=== PATIENT | female | born 1995 | race Caucasian/White ===

== ENCOUNTER 2022-07-29 19:59 | Inpatient (IN) ==
[2022-07-29] MEDS ORDERED: IOPAMIDOL 100 ML BOTTLE IV ONE (20:00)
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
[2022-07-29] MEDS ORDERED: KETOROLAC 30 MG/ML VIAL IV ONE (21:17)
[2022-07-29] MEDS ORDERED: LACTATED RINGERS 1,000 ML IV ONE (21:17)
[2022-07-29] MEDS ORDERED: DEXAMETHASONE 10 MG/ML VIAL IV ONE (21:29)
[2022-07-29 21:53] LABS: POC Calcium, Ionized 1.14 (1.16-1.32); POC Creatinine 0.6 (0.6-1.2); POC Potassium 3.5 (3.3-5.1)
[2022-07-29] MEDS ORDERED: AMOXICILLIN 250 MG CAPSULE PO ONE (22:08)
[2022-07-29 22:19] LABS: Basophils # (Auto) 0.06 K/mcL (0.00-0.30); Basophils % (Auto) 0.3 % (0.0-2.0); Eosinophils # (Auto) 0.01 K/mcL (0.00-0.70); Eosinophils % (Auto) 0 % (0.0-7.0); Hematocrit 41.5 % (34.1-44.9); Hemoglobin 14.5 g/dL (11.2-15.7); Lymphocytes # (Auto) 2.57 K/mcL (1.50-4.80); Lymphocytes % (Auto) 12.2 % (15.5-49.0); Mean Cell Volume 82.2 fL (80.0-100.0); Mean Corpuscular HGB Conc 34.9 g/dL (31.0-36.0); Mean Platelet Volume 9.4 fL (8.8-12.5); Monocytes # (Auto) 1.46 K/mcL (0.10-0.90); Monocytes % (Auto) 6.9 % (1.0-12.0); Neutrophils % (Auto) 79.7 % (38.0-78.0); Platelet Count 315 K/mcL (140-440); RBC 5.05 M/mcL (3.59-5.38); Red Cell Distribution Width 12.3 % (11.5-14.5); WBC 21.1 K/mcL (4.5-11.0)
[2022-07-29] MEDS ORDERED: 0.9 % SODIUM CHLORIDE 1,000 ML IV ONE (22:32)
[2022-07-29] MEDS ORDERED: ONDANSETRON 4 MG/2 ML VIAL IV PRN (23:24)
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
[2022-07-30] MEDS: AMPICILLIN SODIUM/SULBACTAM NA 3 GM in 0.9 % SODIUM CHLORIDE 100 ML IV SCH ×5 (03:07→23:35)
[2022-07-30] MEDS: 0.9 % SODIUM CHLORIDE 1,000 ML IV SCH ×2 (03:07→17:37)
[2022-07-30] MEDS: 0.9 % SODIUM CHLORIDE 10 ML SYRINGE IV SCH ×3 (05:06→20:00)
[2022-07-30] MEDS: IBUPROFEN 600 MG TABLET PO PRN (05:27)
[2022-07-30] MEDS ORDERED: IBUPROFEN 600 MG TABLET PO ONE (05:28)
--- NOTE | 2022-07-30 05:48 | Cat Scan Report ---
INDICATION: Strep, elevated WBC COMPARISON: None TECHNIQUE: Axial contrast enhanced images through the neck. Sagittally and coronally reformatted images. 80ml Isovue 370 injected intravenously. FINDINGS: Examination was initially interpreted by [facility] Mucosa: There is mucosal and submucosal tonsillar soft tissue swelling at the level of the oropharynx.. There is mild mucosal enhancement. There may be a small peritonsillar microabscess on the left. The oropharynx is edematous with mucosal and submucosal edema and effacement of the airway. A well-defined retropharyngeal abscess is not present. There is no foreign body. Epiglottis and glottis: Epiglottis is normal. No evidence for epiglottitis. Glottis is normal. No subglottic edema. Vascular:Common carotid arteries and internal carotid arteries are patent bilaterally. Internal jugular veins are patent Lymphatic:No pathologic lymphadenopathy. Internal jugular chains are negative. No supraclavicular adenopathy Salivary glands:Parotid glands and submandibular glands are negative bilaterally. No focal mass. No evidence for sialoadenitis. Soft Tissue:No solid or cystic soft tissue mass. No abscess. No focal abnormality Lung Apices:No pulmonary parenchymal density. No pneumothorax. No focal abnormality. Thyroid:Negative. No detectable nodule Paranasal sinuses:Mild mucosal thickening in the left maxillary sinus Musculoskeletal:Negative cervical spine. No fracture. No lytic lesion. IMPRESSION: 1. Tonsillar and peritonsillar mucosal and submucosal edema and enhancement. 2. Subtle low-density abnormalities in the represent microabscesses. A dominant retropharyngeal abscess is not identified. 3. Effacement of the airway at the level of the oropharynx The exam was performed using radiation dose optimization techniques including, but not limited to, automated exposure control, adjustment of the mA and/or kV according to patient size and use of iterative reconstruction technique. Interpreted and Authenticated by: Jarvis Espinoza 07/30/22
[2022-07-30 06:16] LABS: Basophils # (Auto) 0.06 K/mcL (0.00-0.30); Basophils % (Auto) 0.2 % (0.0-2.0); Eosinophils # (Auto) 0 K/mcL (0.00-0.70); Eosinophils % (Auto) 0 % (0.0-7.0); Hematocrit 39.3 % (34.1-44.9); Hemoglobin 13.1 g/dL (11.2-15.7); Lymphocytes # (Auto) 2.13 K/mcL (1.50-4.80); Lymphocytes % (Auto) 8.6 % (15.5-49.0); Mean Cell Volume 85.8 fL (80.0-100.0); Mean Corpuscular HGB Conc 33.3 g/dL (31.0-36.0); Mean Platelet Volume 9.4 fL (8.8-12.5); Monocytes % (Auto) 2.8 % (1.0-12.0); Neutrophils % (Auto) 86.2 % (38.0-78.0); Platelet Count 295 K/mcL (140-440); RBC 4.58 M/mcL (3.59-5.38); Red Cell Distribution Width 12.5 % (11.5-14.5); WBC 24.8 K/mcL (4.5-11.0)
--- NOTE | 2022-07-30 06:23 | XRay Report ---
INDICATION: SOB TECHNIQUE: AP portable semiupright chest x-ray COMPARISON: None FINDINGS: Lungs:Lungs are negative. No focal pulmonary parenchymal infiltrate or mass Heart, vascular:No significant cardiomegaly. Pulmonary vascularity is normal. No pulmonary edema or pulmonary congestion Mediastinum, santo:No mediastinal widening. No hilar mass Pleura:No pleural fluid. No pleural-based mass or calcification Skeletal:Negative. IMPRESSION: Negative AP chest x-ray Interpreted and Authenticated by: Jarvis Espinoza 07/30/22
[2022-07-30 06:37] LABS: Blood Urea Nitrogen 10 mg/dL (6-20); Calcium 8.8 mg/dL (8.6-10.4); Carbon Dioxide 19 mmol/L (22-30); Chloride 103 mmol/L (96-108); Glomerular Filtration Rate 125; Glucose 144 mg/dL (70-105)
--- NOTE | 2022-07-30 07:36 | Internal Med Progress Note ---
SUBJECTIVE Subjective Patient information: Note initiated : 07/30/22 at 7:27 am Service Date, if different from initiated Date: [] Patient: Dawn Gonzalez 26 y/o F admitted on 07/30/22 for Swollen throat, body ache. Chief Complaint: [] Additional PMFSH (Level 3 Only): Ms. Gonzalez is a 26 year old female with no significant past medical history prese nted with 2 days history of sore throat, nausea, chills. 1 day ago patient started feeling unwell with sore throat. Today when she woke up she had severe pain in her throat more on the right side. She could not eat or drink, she was not able to talk due to throat pain, also her neck hurts. She has been coughing up brownish sputum. She reports her back and hip hurts. No documented fever. She endorse some shortness of breath due to sore throat. Patient is a [employer], she has multiple sick contacts at the facility, also all her kids are sick with nausea, fever and cough. Patient had remote history of tonsillectomy. Work-up in ER revealed WBC of 21,000 with neutrophilia, BMP unremarkable, p rocalcitonin 0.10, lactate normal. Strep throat was positive. Influenza and COVID screen was negative. Patient was in sepsis with tachycardia, leukocytosis. Chest x-ray showed no acute findings. 07/30 patient seen and examined, chart reviewed. Patient tachycardia responded to IV fluids. Leukocytosis went up to 24,000 from 21,000 likely in the setting of infection, patient also received steroid on admission which is contributing. Patient reports she is now able to eat and drink, less sore throat. Reports no fever but some chills overnight, hoarseness of voice resolving. ROS Constitutional: Reports some chills overnight, no fever Eyes: Denies eye pain or vision change ENT: Denies sore throat, less cough Cardiovascular: Denies chest pain, dyspnea on exertion, orthopnea or edema Respiratory: Cough, sputum production, some shortness of breath due to sore th roat Gastrointestinal: Endorses nausea denies abdominal pain, vomiting, diarrhea, constipation, hematochezia or melena Musculoskeletal: Reports arthralgia, back and hip hurts Integumentary: Denies rash or lesions Neurological: Denies headache, weakness, numbness, confusion, abnormal gait or dizziness Psychiatric: Denies anxiety, suicidal thoughts or homicidal thoughts Endocrine: Denies fatigue or polyuria Hematological/Lymphatic: Denies easy bleeding or easy bruising Exam General appearance: Present alert and in no apparent distress; Absent anxious, nontoxic Head Head: Present normocephalic; Absent atraumatic Eye Eye: Present PERRL, EOMI and visual marte intact; Absent scleral icterus or nystagmus ENT ENT: Erythema involving right tonsillar and peritonsillar area, posterior pharynx, no exudate, uvula midline, tenderness at the angle of jaw resolving Neck Neck: Present full ROM; Absent tenderness Chest Chest: Present normal inspection, symmetric chest wall rise and tenderness Respiratory Respiratory: Present normal lung sounds bilaterally; Absent respiratory distress or accessory muscle use Cardiovascular Cardiovascular: Present S1 and S2, regular rate and rhythm, no murmurs heard Adbominal Abdominal: Present soft and normal bowel sounds; Absent distention or tenderness Extremities Extremities: Present normal inspection and full ROM; Absent tenderness Back Back: Present normal inspection and full ROM; Absent tenderness Neurological Neurological: Present alert, oriented X3, CN II-XII intact, normal gait and reflexes normal; Absent motor sensory deficit Psychiatric Psychiatric: Present normal affect and normal mood Skin Skin: Present warm (WNL), dry and normal color CT scan neck IMPRESSION: 1. Tonsillar and peritonsillar mucosal and submucosal edema and enhancement. 2. Subtle low-density abnormalities in the represent microabscesses. A dominant retropharyngeal abscess is not identified. 3. Effacement of the airway at the level of the oropharynx Assessment Acute streptococcal pharyngitis, rapid strep positive. Sepsis with tachycardia, leukocytosis and strep throat. Leukocytosis, likely in the setting of sepsis and steroid therapy Current smoker/tobacco abuse. Plan CT soft tisse neck showed no kamlesh retroperitoneal abscess, possible microabscess. Patient oropharyngeal airway. Patient is satting well on room air, no respiratory compromise. Continue IV Unasyn. No need for Decadron therapy. Blood cultures are pending. Patient oral intake is improving, will DC IV fluids later today Counseled on smoking cessation DVT prophylaxis with Lovenox Full code Constitutional Vitals: Vital Signs Temp Pulse Resp BP Pulse Ox O2 Del Method 97.7 F 95 H 21 118/75 95 Room Air 07/30/22 04:00 07/30/22 04:00 07/30/22 04:00 07/30/22 04:00 07/30/22 04:00 07/30/22 04:00 Period Temp Pulse Resp BP Sys/Casas Pulse Ox O2 Del Method O2 Flow Rate Last 24 Hr 97.7 F-99.3 F 93-129 18-21 118-152/72-84 95-98 Room Air-Room Air Intake and Output 07/29/22 07/30/22 07/30/22 19:59 03:59 11:59 Intake Total 1500 200 Balance 1500 200 Weight 78.131 kg Intake & Output: Intake & Output 07/29/22 07/30/22 07/30/22 19:59 03:59 11:59 Intake Total 1500 200 Balance 1500 200 Weight 78.131 kg Intake: IV 1000 200 Unasyn 3 gm In Sodium Chloride 200 0.9% 100 ml @ 200 mls/hr IV Q6H SELWYN Rx#:[id number] Lactated Ringers 1,000 ml @ 1000 Wide Open IV BOLUS ONE Rx#: [id number] Oral 500 OBJ DATA Labs 07/30/22 05:29 07/30/22 05:29 Labs: Abnormal Lab Results 07/30/22 07/30/22 07/29/22 05:29 05:29 23:02 WBC 24.8 H Immature Gran % (Auto) 2.2 H Neut % (Auto) 86.2 H Lymph % (Auto) 8.6 L Wilkes # (Auto) Immature Gran # 0.54 H Absolute Neutrophils 21.36 H POC VBG pH 7.48 H POC VBG pCO2 at Temp 27.1 L POC VBG pO2 66 H POC VBG HCO3 20.3 L POC VBG Total CO2 21.0 L POC Venous O2 Sat 94.0 H POC VBG Base Excess -3.0 L Carbon Dioxide 19 L Glucose 144 H POC Glucose POC WB Ioniz Calcium Procalcitonin 07/29/22 07/29/22 07/29/22 22:37 21:45 21:38 WBC 21.1 H Immature Gran % (Auto) 0.9 H Neut % (Auto) 79.7 H Lymph % (Auto) 12.2 L Wilkes # (Auto) 1.46 H Immature Gran # 0.20 H Absolute Neutrophils 16.82 H POC VBG pH POC VBG pCO2 at Temp POC VBG pO2 POC VBG HCO3 POC VBG Total CO2 POC Venous O2 Sat POC VBG Base Excess Carbon Dioxide Glucose POC Glucose 106 H POC WB Ioniz Calcium 1.14 L Procalcitonin 0.10 H Meds: Medications Acetaminophen (Acetaminophen 325 Mg Tablet) 650 mg PO Q6HP PRN; Protocol PRN Reason: Per Pain Protocol/Fever > 101 Enoxaparin Sodium (Enoxaparin 40 Mg/0.4 Ml Syringe) 40 mg SQ DAILY [facility] Ampicillin Sodium/Sulbactam (Sodium 3 gm/ Sodium Chloride) 100 mls @ 200 mls/hr IV Q6H [facility] Last Infusion: 07/30/22 05:45 Dose: Infused Sodium Chloride (Sodium Chloride 0.9%) 1,000 mls @ 75 mls/hr IV .[id number] [facility] Last Admin: 07/30/22 03:07 Dose: 75 mls/hr Ibuprofen (Ibuprofen 600 Mg Tablet) 600 mg PO QIDP PRN; Protocol PRN Reason: Per Pain Protocol/Fever > 101 Last Admin: 07/30/22 05:27 Dose: 600 mg Ondansetron HCl (Ondansetron 4 Mg/2 Ml Vial) 4 mg IV Q6HP PRN PRN Reason: Nausea And Vomiting Sodium Chloride (0.9 % Sodium Chloride 10 Ml Syringe) 10 ml IV Q8 [facility] Last Admin: 07/30/22 05:06 Dose: Not Given A/P Time Spent With Patient Time: Total time spent is greater than 50% in coordination of care (as documented) at patient's floor/unit and/or counseling patient: Initial: Total time with patient: 55 - 74 minutes QUALITY VTE Deep Vein Thrombosis/Pulmonary Embolism Present on Admission: No
[2022-07-30] MEDS: ENOXAPARIN 40 MG/0.4 ML SYRINGE SQ SCH (09:18)
[2022-07-30] MEDS ORDERED: POLYETHYLENE GLYCOL 3350 17 GM PACKET PO ONE (10:15)
[2022-07-30] MEDS ORDERED: SENNOSIDES 1 TABLET PO ONE (10:15)
[2022-07-30] MEDS ORDERED: CALCIUM CARBONATE 500 MG TAB.CHEW CHEWED PRN (16:07)
[2022-07-30] MEDS: ACETAMINOPHEN 325 MG TABLET PO PRN (16:08)
[2022-07-31] MEDS: IBUPROFEN 600 MG TABLET PO PRN (04:44)
[2022-07-31] MEDS: AMPICILLIN SODIUM/SULBACTAM NA 3 GM in 0.9 % SODIUM CHLORIDE 100 ML IV SCH (04:45)
[2022-07-31] MEDS: 0.9 % SODIUM CHLORIDE 10 ML SYRINGE IV SCH (05:10)
[2022-07-31 06:17] LABS: Basophils # (Auto) 0.11 K/mcL (0.00-0.30); Basophils % (Auto) 0.7 % (0.0-2.0); Eosinophils # (Auto) 0.08 K/mcL (0.00-0.70); Eosinophils % (Auto) 0.5 % (0.0-7.0); Lymphocytes # (Auto) 3.72 K/mcL (1.50-4.80); Lymphocytes % (Auto) 23.3 % (15.5-49.0); Mean Cell Volume 86.1 fL (80.0-100.0); Mean Corpuscular HGB Conc 33.3 g/dL (31.0-36.0); Mean Platelet Volume 9.6 fL (8.8-12.5); Monocytes # (Auto) 0.94 K/mcL (0.10-0.90); Monocytes % (Auto) 5.9 % (1.0-12.0); Neutrophils % (Auto) 67.8 % (38.0-78.0); Platelet Count 287 K/mcL (140-440); RBC 4.18 M/mcL (3.59-5.38); Red Cell Distribution Width 12.6 % (11.5-14.5)
[2022-07-31 06:36] LABS: Blood Urea Nitrogen 10 mg/dL (6-20); Calcium 8.6 mg/dL (8.6-10.4); Carbon Dioxide 24 mmol/L (22-30); Chloride 107 mmol/L (96-108); Glomerular Filtration Rate 133; Glucose 97 mg/dL (70-105)
[2022-07-31] MEDS: ACETAMINOPHEN 325 MG TABLET PO PRN (07:10)
[2022-07-31] MEDS ORDERED: guaiFENesin/DEXTROMETHORPHAN 5ML UD CUP PO PRN (07:29)
[2022-07-31] MEDS: ENOXAPARIN 40 MG/0.4 ML SYRINGE SQ SCH (08:36)
[2022-07-31] MEDS ORDERED: VENLAFAXINE 75 MG CAP.XL.24H PO SCH (09:00)
--- NOTE | 2022-07-31 10:53 | Discharge Summary ---
Discharge Provider Provider IMPORTANT FOLLOW-UP INFORMATION FOR PCP: Patient information: Note initiated : 07/31/22 at 10:49 am Service Date, if different from initiated Date: [] Patient: Dawn Shook 26 y/o F admitted on 07/30/22 for Swollen throat, body ache. Chief Complaint: [] Date of admission: 07/30/22 00:42 Discharge date: 07/31/22 Primary care physician: Nayeli Rogers Attending physician on admission: Guy Wisdom Consults: 07/29/22 Consult to Physician [CONS] Stat Comment: Consulting Provider: Guy Wisdom Reason For Exam: Physician to Consult Attending physician on discharge: Chi Hailey Pui COURSE Hospital Course Hospital course: Ms. Gonzalez is a 26 year old female with no significant past medical history presented with 2 days history of sore throat, nausea, chills. 1 day ago patient started feeling unwell with sore throat. Today when she woke up she had severe pain in her throat more on the right side. She could not eat or drink, she was not able to talk due to throat pain, also her neck hurts. She has been coughing up brownish sputum. She reports her back and hip hurts. No documented fever. She endorse some shortness of breath due to sore throat. Patient is a [employer], she has multiple sick contacts at the facility, also all her kids are sick with nausea, fever and cough. Patient had remote history of tonsillectomy. Work-up in ER revealed WBC of 21,000 with neutrophilia, BMP unremarkable, procalcitonin 0.10, lactate normal. Strep throat was positive. Influenza and COVID screen was negative. Patient was in sepsis with tachycardia, leukocytosis. Chest x-ray showed no acute findings. 07/30 patient seen and examined, chart reviewed. Patient tachycardia responded to IV fluids. Leukocytosis went up to 24,000 from 21,000 likely in the setting of infection, patient also received steroid on admission which is contributing. Patient reports she is now able to eat and drink, less sore throat. Reports no fever but some chills overnight, hoarseness of voice resolving. 07/31: Discharged home. 2 weeks PCP follow-up appointment made for the patient's. Prescriptions sent to pharmacy. All questions answered prior to patient being physically discharged. Discharge diagnosis: Strep pharyngitis. Time Spent with Patient Time attestation: Total time spent providing and/or coordinating discharge services: Time spent: Less than 30 minutes EXAM Constitutional Vitals: Temp Pulse Resp BP Pulse Ox O2 Del Method 36.8 C 86 18 120/77 95 Room Air 07/31/22 07:04 07/31/22 07:04 07/31/22 07:04 07/31/22 07:04 07/31/22 07:04 07/31/22 07:04 General appearance: cooperative and no acute distress Head Head exam: Present atraumatic and normocephalic Eye Eye exam: Present EOMI and PERRL ENT ENT exam: Present mucous membranes moist, normal exam and normal external ear exam Neck Neck exam: Present lymphadenopathy, normal inspection and tenderness; Absent thyromegaly Respiratory Respiratory exam: Absent accessory muscle use, respiratory distress or wheezes Cardiovascular Cardiovascular exam: Present normal rate and rhythm; Absent JVD GI/Abdominal GI/Abdominal exam: Present normal bowel sounds and soft; Absent organomegaly or tenderness Extremities Exam Extremities exam: Present full ROM, normal capillary refill and normal inspection; Absent tenderness Neurological Exam Neurological exam: Present alert, CN II-XII intact and oriented X3; Absent motor sensory deficit Psychiatric Psychiatric exam: Present normal affect and normal mood; Absent anxious or depressed Skin Skin exam: Present dry and intact Discharge Data Data Completed and Pending Labs on day of discharge: Labs from last 24 hours 07/31/22 07/31/22 05:27 05:27 WBC 16.0 H RBC 4.18 Hgb 12.0 Hct 36.0 MCV 86.1 MCH 28.7 MCHC 33.3 RDW 12.6 Plt Count 287 MPV 9.6 Immature Gran % (Auto) 1.8 H Neut % (Auto) 67.8 Lymph % (Auto) 23.3 [place] % (Auto) 5.9 Eos % (Auto) 0.5 Baso % (Auto) 0.7 Lymph # (Auto) 3.72 [place] # (Auto) 0.94 H Eos # (Auto) 0.08 Baso # (Auto) 0.11 Immature Gran # 0.28 H Absolute Neutrophils 10.85 H Sodium 141 Potassium 3.6 Chloride 107 Carbon Dioxide 24 Anion Gap 10.0 BUN 10 Creatinine 0.5 L GFR Calculation 133 Glucose 97 Calcium 8.6 Preliminary micro results at discharge 07/29/22 22:55 Blood Culture - Preliminary Blood 07/29/22 22:54 Blood Culture - Preliminary Blood Discharge Plan Patient/Caregiver Discharge Instructions Activity: increase activity as tolerated Diet: Regular Diet Prescriptions: New dextromethorphan-guaifenesin 10-100 mg/5 mL Syrup 10 ml PO Q4HP PRN (Reason: Cough) 7 Days Qty: 10 0RF ibuprofen 600 mg Tablet 600 mg PO QIDP PRN (Reason: Per Pain Protocol/Fever > 101) 7 Days Qty: 20 0RF penicillin V potassium 500 mg tablet 500 mg PO TID Qty: 24 0RF Cepacol Sore Throat (thor-men) 15-2.6 mg lozenge 1 vicky mucous membrane Q2H PRN (Reason: sore throat) Qty: 16 1RF Continued Effexor 75 mg QDAY Follow Up Plan Follow up with: Nayeli Rogers ARNP [Primary Care Provider] - 08/14/22 9:45 am Patient Disposition: Home, Self-Care Rehab Potential: Good I certify that the patient requires SNF services: No Overall status at discharge: patient is progressing back to baseline Discharge Orders: Discharge Order (Routine); Ordered 07/31/22 Ordered By: Earle LEES VTE Deep Vein Thrombosis/Pulmonary Embolism Present on Admission: No
--- NOTE | 2022-08-01 09:52 | EKG ---
[facility] Test Date: 2022-07-29 Pat Name: Dawn Gonzalez Department: ED Room: Gender: Female Principal Biostatistician: : 1995 Requested By: Yonatan Muñoz Order Number: [id number] Reading MD: Martina Gentile D.O. Measurements Intervals [place] Rate: 121 P: 49 MT: 143 QRS: 67 QRSD: 85 T: -12 QT: 312 QTc: 443 Interpretive Statements Sinus tachycardia T abnormalities, inferior leads Electronically Signed On 08-01-2022 9:51:47 PDT by Martina Gentile D.O. /[id number]/[id number]
== END 2022-07-31 12:14 | disposition home or self-care (01) | DRG 152 ==
LOC: ED 19:59 → MEDSUR 07-30 00:42
PROVIDERS: ADMIT Internal Medicine; ATTEND Internal Medicine